=== PATIENT | male | born 1970 | race Caucasian/White ===

== ENCOUNTER → 2023-07-06 14:49 | Outpatient (REF) | payer OTHER, SELFPAY | LOC: CLAB 14:49 | PROVIDERS: ATTENDING PHYSICIAN Surgery | DX: K64.2 Third degree hemorrhoids (principal) | CPT/HCPCS: 88304 ==

== ENCOUNTER 2023-07-15 17:52 | Observation (INO) | payer OTHER, SELFPAY ==
[2023-07-15] VITALS (10 sets, daily range): BP systolic 126–173; BP diastolic 77–101; BMI 31.6
[2023-07-15 10:36] LABS: % Basophils 0.6 % (0-2); % Eosinophils 5.4 % (0-6); % Immature Granulocytes 0.4 % (0-0.5); % Lymphocytes 16.8 % (20.5-51.1); % Monocytes 11.3 % (1.7-9.3); % Neutrophils 65.5 % (42.2-75.2); Absolute Basophils 0.1 10^3/uL (0-0.2); Absolute Eosinophils 0.5 10^3/uL (0-0.7); Absolute Lymphocytes 1.4 10^3/uL (1.2-3.4); Absolute Monocytes 0.9 10^3/uL (0.1-0.6); Absolute Neutrophils 5.4 10^3/uL (1.4-6.5); Hematocrit 47.3 % (39.0-52.0); Hemoglobin 16.6 g/dL (13.0-18.0); Mean Corp Hgb Conc. 35.1 g/dL (33.0-37.0); Mean Corpuscular Hgb 31.3 pg (27.0-31.0); Mean Corpuscular Volume 89.1 fL (80.0-94.0); Mean Platelet Volume 8.6 fL (7.4-10.4); Nucleated Red Blood Cells % 0 % (-); Platelet Count 253 10^3/uL (130-400); Red Blood Cell Count 5.31 10^6/uL (4.70-6.10); Red Cell Dist. Width 12.7 % (11.5-14.5); White Blood Cell Count 8.3 10^3/uL (4.8-10.8)
[2023-07-15 10:44] LABS: PT 13.2 Sec (11.4-14.6)
[2023-07-15 10:46] LABS: ALT (SGPT) 25 U/L (0-50); AST (SGOT) 26 U/L (17-59); Albumin 3.8 g/dl (3.5-5.0); Alkaline Phosphatase 94 U/L (38-126); Blood Urea Nitrogen 24 mg/dl (9-20); Calcium 9.4 mg/dl (8.4-10.2); Carbon Dioxide 24 mmol/L (22-30); Chloride 106 mmol/L (98-107); Glucose 121 mg/dl (70-99); Potassium 4.1 mmol/L (3.5-5.1); Sodium 138 mmol/L (135-145); Total Bilirubin 0.7 mg/dl (0.2-1.3); Total Protein 6.7 g/dl (6.3-8.2); eGFR > 60.00
[2023-07-15] MEDS: DILAUDID 1 MG IV ×4 (11:27→22:05)
--- NOTE | 2023-07-15 13:45 | ED.GENMED ---
History of Present Illness
General
Chief Complaint: Post Operative Problem(s)
Source: patient
Exam Limitations: none
Time Seen by Provider: 07/15/23 10:16
Nursing documentation reviewed up to this point in time: agreed with
Travel History
Have you had any contact with someone who has COVID-19?: No
Do you have any symptoms of coronavirus? Fever > 100 degrees, chills, cough, shortness of breath, sore throat, loss of taste or smell, muscle aches, or headache?: No
History of Present Illness
History of Present Illness:
53-year-old male with past medical history of hypertension, hemorrhoids status post recent hemorrhoidectomy 9 days ago presenting to the emergency department today with concerns of ongoing severe rectal pain. Denies any fevers chest pain shortness
of breath has been having some bowel movements but claims they are painful
Past History
Past History
ED Past Medical History: None
ED Past Surgical History: None
Social History
Tobacco: Smoker
Alcohol: None
Living: with family
Family History
Family History: Negative Diabetes, Hypertension or CAD
Review of Systems
Review of Systems
Allergies reviewed?: Yes
All Other Systems: ROS reviewed and negative except as documented in HPI and ROS
Phy Exam
Physical Exam
Physical Exam:
GENERAL: Alert , in no apparent distress
EYE: pupils equal and reactive
NECK: Supple, no significant adenopathy.
ENT: o/p clr, mmm.
CARDIAC: Regular rate and rhythm .
LUNGS: Clear breath sounds bilaterally, no acute respiratory distress, no wheezes/rales/rhonchi
ABDOMEN: Multiple external hemorrhoids very tender to palpation to even light touch small mount of what appears to be purulence soft, without focal tenderness, no r/g, no cvat
NEUROLOGICAL: Alert and oriented, no focal neuro deficits
SKIN: Warm and dry, skin intact.
MUSCULOSKELETAL: No edema, well perfused.
PSYCH: Normal and appropriate interaction.
Course
Orders/Labs/Results
Orders:
Orders
07/15/23 10:20
Complete Blood Count/With Diff Urgent
Comprehensive Metabolic Panel Urgent
Prothrombin Time Urgent
07/15/23 11:[address] Pelvis With Iv Contrast Urgent
Comment:
Reason For Exam: rectal pain after hemmorhoidectomy
HYDROmorphone [Dilaudid] 1 mg IV NOW STA
07/15/23 13:32
Lorazepam [Ativan] 1 mg IV NOW STA
07/15/23 14:35
Sitz Bath As Directed
Frequency: BID
Comment: warm water, 10 minutes at a time
07/15/23 20:00
Docusate Sodium [Colace] 100 mg PO BID
07/16/23 08:00
Calcium Polycarbophil [Fibercon] 625 mg PO DAILY
Psyllium [Metamucil, Konsyl] 1 packet PO DAILY
Abnormal Lab Results
07/15/23
10:20
MCH 31.3 H pg
(27.0-31.0)
Absolute Monos (auto) 0.9 H 10^3/uL
(0.1-0.6)
Lymphocytes % 16.8 L %
(20.5-51.1)
Monocytes % 11.3 H %
(1.7-9.3)
BUN 24 H mg/dl
(9-20)
Glucose 121 H mg/dl
(70-99)
07/15/23 10:20
07/15/23 10:20
Vital Signs
Initial and Last Documented VS:
Initial Vital Signs
Temp Pulse Resp BP Pulse Ox
98.1 F 92 18 173/90 94
07/15/23 09:43 07/15/23 09:43 07/15/23 09:43 07/15/23 09:43 07/15/23 09:43
Last Documented Vital Signs
Temp Pulse Resp BP Pulse Ox
98.1 F 82 20 143/97 97
07/15/23 09:43 07/15/23 13:52 07/15/23 13:52 07/15/23 12:00 07/15/23 13:52
MDM/Problems Addressed
MDM/Problems Addressed:
53-year-old male presenting to today with concerns of severe rectal pain 9 days after hemorrhoidectomy. Patient contacted his colorectal surgeon who told him to come to the ER for assessment. Here patient has significant discomfort even with even
the slightest palpation to the rectal area. There is a small amount of what appears to be purulent discharge at the very external portion. CT scan does not show abscess Case was reviewed and patient was seen by colorectal team they recommended
admitting for pain control and reassessment.
*Critical Care Note
Total Time (30-74mins, 75-104mins- exclusive of procedures): Not Applicable
ED Attending Note
-
Portions of this chart may have been created with voice recognition software.� Occasional wrong word or��sound alike� substitutions may have occurred due to the inherent limitations of voice recognition software.
Discharge Plan
Departure
Patient Disposition: Home (Routine Discharge)
Date of Disposition: 07/15/23
Time of Disposition: 15:14
Admit to: Med/Surg
Admit to doctor: Gilson
Patient with high blood pressure during this ER visit?: No
Condition: Good
Covid-19: Not Applicable
Discharge Problem:
Anal or rectal pain
Prescriptions:
No Action
amlodipine 2.5 mg tablet
2.5 mg PO DAILY
losartan-hydrochlorothiazide 100-25 mg tablet
1 tab PO DAILY
oxycodone-acetaminophen 5-325 mg tablet
1 tab PO Q6H PRN (Reason: moderate pain)
Patient Comments:
07/15/2023: last filled 07/10/23, 28 tabs for 7 days from [facility]
diazepam 2 mg tablet
2 mg PO BID PRN (Reason: ANXIETY)
Patient Comments:
07/15/2023: last filled 07/13/23, 14 tabs for 7 days from [id number]
ergocalciferol (vitamin D2) 1,250 mcg (50,000 unit) capsule
1,250 mcg PO SA
Referrals:
Jluis Zelaya DO [Family Provider] -
Interventions
Interventions:
*Risk Screen - Suicide Last Done: 07/15/23 09:43
*General Assessment Last Done: 07/15/23 09:43
*Neglect/Abuse Screening Last Done: 07/15/23 09:43
*ED COVID-19 Vaccine History Last Done: 07/15/23 09:43
ED-Skin Assessment Last Done: 07/15/23 10:26
Discharge Date and Time
Print Language: [place]
[2023-07-15] MEDS: ATIVAN 1 MG IV (13:48)
--- NOTE | 2023-07-15 14:21 | CON.CRS ---
Consultation
-
Date/Time Consultation Performed: 07/15/2023, 14:21
Performing Provider: Abrahan Wan MD
Reason for Consultation: anal pain
Medical History
-
Chief Complaint: anal pain
History of Present Illness:
53-year-old male with a past medical history of hyperlipidemia, hypertension, anxiety presents to the ER due to excruciating anal pain. The patient underwent hemorrhoidectomy by Dr. Blas on 06/26/2023. He initially had some pain and was brought
back to clinic 4 days later. At that time he was prescribed Percocet and Valium due to his pain. He then called our office 2 days ago stating of his pain has been unrelenting. The only thing that helps was Valium however over the past few days it
had subsided and its efficiency. The patient has been doing sitz bath's multiple times a day and has been taking fiber and Metamucil. The patient was not able to sleep over the past 2 nights and was 'withering and pain in his bed'. The patient
states the rectal tampon that was placed during surgery came out yesterday. He feels constant pressure like he has to have a bowel movement but is unable to. Initially he had trouble urinating but that has subsided over the past few days. He
denies any blood in his stool. He denies fevers or chills.
On admission to the ER his WBC is normal. CT of the pelvis shows no free fluid or fluid collection. No abscess. Mild wall thickening of the anal rectal junction. Minimal adjacent stranding consistent with postoperative inflammation. The patient
received Dilaudid in the ED but states that it has not helped at all. We have been consulted for further recommendations.
Past Medical History
Past Medical History: HTN, Hypercholesterolemia and Other (ADD, essential tremor, h/o gastritis, anxiety, WILLIAMS, packer's palsy, Vit D deficiency )
Past Surgical History: Brain (Deep brain stimulator May 2021) and Other (carpal tunnel release, wisdom teeth extraction 01/2017�, arthroscopic debridement of the suprapatellar pouch and synovitis and irrigation of joint-right Knee
10/2007,�cystoscopy, excision of perineal abscess and sinus tract 12/2000�, incision and drainage of perineal abscess 07/12)
Social History
Tobacco: Non-Smoker
Alcohol: Occasional
Drug: None
Family History
Family History: Reviewed & Not Pertinent
Allergies / Home Medications
Allergy/AdvReac Type Severity Reaction Status Date / Time
No Known Allergies Allergy Verified 07/15/23 09:43
�Medication �Instructions �Recorded �Confirmed �Type
amlodipine 2.5 mg tablet 2.5 mg PO DAILY 07/15/23 07/15/23 History
diazepam 2 mg tablet 2 mg PO BID PRN ANXIETY 07/15/23 07/15/23 History
ergocalciferol (vitamin D2) 1,250 1,250 mcg PO SA 07/15/23 07/15/23 History
mcg (50,000 unit) capsule
losartan 100 1 tab PO DAILY 07/15/23 07/15/23 History
mg-hydrochlorothiazide 25 mg tablet
oxycodone-acetaminophen 5 mg-325 1 tab PO Q6H PRN moderate pain 07/15/23 07/15/23 History
mg tablet
Review of Systems
-
All other systems: Negative unless noted
: Difficulty Voiding and Other (rectal pain/pressure)
A 10 point review of systems was completed, and was negative except as per HPI.
Physical Exam
Vital Signs
Temp 98.1 F 07/15/23 09:43
Pulse 82 07/15/23 13:52
Resp Rate 20 07/15/23 13:52
Blood pressure 143/97 07/15/23 12:00
SaO2 97 07/15/23 13:52
07/14/23 07/15/23 07/16/23
06:59 06:59 06:59
Actual Weight 100.698 kg
Lab Results / Allergies
07/15/23 10:20
07/15/23 10:20
WBC 8.3 10^3/uL (4.8-10.8) 07/15/23 10:20
Hgb 16.6 g/dL (13.0-18.0) 07/15/23 10:20
Hct 47.3 % (39.0-52.0) 07/15/23 10:20
Plt Count 253 10^3/uL (130-400) 07/15/23 10:20
Abs Immat Gran (auto) 0.0 10^3/uL (0-0.05) 07/15/23 10:20
Neutrophils % 65.5 % (42.2-75.2) 07/15/23 10:20
Allergy/AdvReac Type Severity Reaction Status Date / Time
No Known Allergies Allergy Verified 07/15/23 09:43
Physical Exam
General: Well Developed, Well Nourished and No Apparent Distress
GI: Soft, Non Tender and Non Distended
Rectal: Other (external exam: sutures in place, mucin around anal area, no fluctuance on palpation, no erythema, patient is refusing JAVI)
Neuro: AO x 3
Data Reviewed
-
CT Scan: Image Personally Visualized and interpreted, Report Reviewed by me and Discussed with Patient
Labs: Labs Reviewed by me, Discussed with Physician and Discussed with Patient
Old Records: Reviewed
Assessment / Plan
-
Assessment: 53 yo male POD#9 from a hemorrhoidectomy presents with perianal pain and pressure despite percocet/valium, no abscess noted on CT
Plan:
1. Recommend admit to medicine service for pain control.
2. No role for antibiotics from our standpoint at this time.
3. Monitor WBC/vitals.
4. Patient currently refusing JAVI. If he worsens tomorrow, will consider an exam under anesthesia. Will hold off at this time.
5. Recommend stool softeners, fiber, and sitz baths.
--- NOTE | 2023-07-15 15:49 | HPS.HSE ---
Family Physician
-
Family Physician: Jluis Zelaya
Chief Complaint
-
Anal pain
History of Present Illness
Patient 53 years old male with history hypertension, hyperlipidemia, essential tremor, recent hemorrhoidectomy on 06/25, presented to the hospital with rectal pain. Patient was seen postop with some rectal pain and was prescribed Percocet and Valium
and despite these medications patient continued to have rectal pain moderate to severe intensity and unrelenting, patient relates that he has not been able to sleep over the last couple of nights. He also has a sensation of constant pressure like
he is going to have a bowel movement but unable to do so. He also had some trouble urinating but now he is voiding okay today. Denies any fevers or chills. Denies nausea vomiting or diarrhea. Denies any blood in the stools. Denies any chest
pain or shortness of breath. In the ER, normal WBC, normal hemoglobin, and CT of the pelvis no free fluid or fluid collection or abscess but mild wall thickening of the anorectal junction and minimal adjacent stranding consistent with postoperative
inflammation. Colorectal surgery consulted. He was referred to hospital service for further evaluation.
Medical History
Past Medical History
Past Medical History: Reports Other (Hypertension, dyslipidemia, ADHD, essential tremor, anxiety, WILLIAMS, vitamin D deficiency, Richmond's palsy, gastritis.)
Past Surgical History: Reports Other (Deep brain stimulator, carpal tunnel release, wisdom teeth extraction, arthroscopy with debridement of the suprapatellar pouch and synovitis and irrigation of the joint, right knee; cystoscopy and excision of
perineal abscess and sinus tract, incision and drainage of perineal abscess in the past.)
Social History
Tobacco: Non-smoker
Alcohol: Occasional
Drug: None
Family History
Family History: Not pertinent
Allergies / Home Medications
Allergies reflects when Allergies were last updated in [employer].
Home Medications with original date entered in [employer]
Allergy/Medication List:
Allergies
Allergy/AdvReac Type Severity Reaction Status Date / Time
No Known Allergies Allergy Verified 07/15/23 09:43
Home Medications
amlodipine 2.5 mg tablet 2.5 mg PO DAILY 07/15/23
diazepam 2 mg tablet 2 mg PO BID PRN ANXIETY 07/15/23
ergocalciferol (vitamin D2) 1,250 mcg (50,000 unit) capsule 1,250 mcg PO SA 07/15/23
losartan 100 mg-hydrochlorothiazide 25 mg tablet 1 tab PO DAILY 07/15/23
oxycodone-acetaminophen 5 mg-325 mg tablet 1 tab PO Q6H PRN moderate pain 07/15/23
Review of Systems
-
A 12 point ROS was completed and negative except as noted: Yes
Physical Exam
Vital Signs
Vital Signs
Temp Pulse Resp BP Pulse Ox
98.1 F 82 20 143/97 97
07/15/23 09:43 07/15/23 13:52 07/15/23 13:52 07/15/23 12:00 07/15/23 13:52
Physical exam:
General: Non toxic. Distress due to pain.
HEENT: Normocephalic, Atraumatic and Moist Mucous Membranes
Respiratory: Clear to Auscultation; Negative Wheezes, Rales or Rhonchi
Cardiac: Regular Rhythm and S1/S2
GI: Soft, Nontender and Nondistended
Musculoskeletal: No Clubbing, No Cyanosis and No Edema
Rectal exam: Deferred since done by providers prior to my evaluation.
Neuro: Awake, Alert and Oriented
Psych: Calm
Physical Exam
General: Other
Laboratory Results
-
07/15/23 10:20
07/15/23 10:20
Laboratory Results
PT 13.2 Sec (11.4-14.6) 07/15/23 10:20
INR 1.00 07/15/23 10:20
Total Bilirubin 0.7 mg/dl (0.2-1.3) 07/15/23 10:20
AST 26 U/L (17-59) 07/15/23 10:20
ALT 25 U/L (0-50) 07/15/23 10:20
Alkaline Phosphatase 94 U/L (38-126) 07/15/23 10:20
Impression/Plan
-
IMPRESSION:
Patient 53 years old male came into the hospital post hemorrhoidectomy with persistent perianal pain post-op.
Impression:
Pain post hemorrhoidectomy
Conditions prior to presentation:
Hypertension
ADHD
Essential tremors status post brain stimulator
Anxiety
PLAN:
Pain control
Sitz bath, fiber, stool softener
IVF
Resume home meds including HTN meds
Supportive care
Colorectal surgery consult
SCDs for DVT prophylaxis
CODE STATUS full code
Time spent 55 min.
[2023-07-15] MEDS: ROXICODONE 10 MG PO ×2 (18:07→21:20)
[2023-07-15] MEDS: COLACE 100 MG PO ×2 (18:10→21:20)
[2023-07-15] MEDS: VALIUM 2 MG PO (21:20)
[2023-07-15] MEDS: NSS 1000 IV (21:20)
--- NOTE | 2023-07-15 22:10 | PTCARENOTE ---
Received pt from ER at 2039. Ambulatory in room. AAOx3 VSS. Pt medicated for pain per APR. Oriented to room, call packer and plan of care.
[2023-07-16] MEDS: DILAUDID 1 MG IV ×7 (01:03→22:32)
[2023-07-16] MEDS: ROXICODONE 10 MG PO ×5 (01:39→20:38)
[2023-07-16 05:37] LABS: % Basophils 0.6 % (0-2); % Eosinophils 6.5 % (0-6); % Immature Granulocytes 0.4 % (0-0.5); % Lymphocytes 24.5 % (20.5-51.1); % Monocytes 12.2 % (1.7-9.3); % Neutrophils 55.8 % (42.2-75.2); Absolute Basophils 0.1 10^3/uL (0-0.2); Absolute Eosinophils 0.5 10^3/uL (0-0.7); Absolute Lymphocytes 1.9 10^3/uL (1.2-3.4); Absolute Neutrophils 4.4 10^3/uL (1.4-6.5); Hematocrit 46.2 % (39.0-52.0); Hemoglobin 15.2 g/dL (13.0-18.0); Mean Corp Hgb Conc. 32.9 g/dL (33.0-37.0); Mean Corpuscular Hgb 30.6 pg (27.0-31.0); Mean Platelet Volume 8.8 fL (7.4-10.4); Nucleated Red Blood Cells % 0 % (-); Platelet Count 230 10^3/uL (130-400); Red Blood Cell Count 4.97 10^6/uL (4.70-6.10); Red Cell Dist. Width 12.7 % (11.5-14.5); White Blood Cell Count 7.8 10^3/uL (4.8-10.8)
[2023-07-16 05:59] LABS: Blood Urea Nitrogen 25 mg/dl (9-20); Carbon Dioxide 26 mmol/L (22-30); Chloride 105 mmol/L (98-107); Estimated Creatinine Clearance 97 ml/min; Glucose 95 mg/dl (70-99); Potassium 4.2 mmol/L (3.5-5.1); Sodium 138 mmol/L (135-145); eGFR > 60.00
[2023-07-16] MEDS: SENOKOT-S 1 TABLET PO (06:05)
[2023-07-16 07:00] VITALS: BP 143/79
[2023-07-16] MEDS: NORVASC 2.5 MG PO (08:13)
[2023-07-16] MEDS: METAMUCIL, KONSYL 1 PACKET PO (08:13)
[2023-07-16] MEDS: HYZAAR 100-25 TABLET 1 TAB PO (08:13)
[2023-07-16] MEDS: COLACE 100 MG PO ×2 (08:13→20:39)
--- NOTE | 2023-07-16 08:57 | W.PN.HOSP.TC ---
Today's Communication/Plan
-
Pain control, bowel regimen.
Assessment / Plan
Assessment / Plan
Physical exam:
General: Non toxic. No acute distress
HEENT: Normocephalic, Atraumatic and Moist Mucous Membranes
Respiratory: Clear to Auscultation; Negative Wheezes, Rales or Rhonchi
Cardiac: Regular Rhythm and S1/S2
GI: Soft, Nontender and Nondistended
Musculoskeletal: No Clubbing, No Cyanosis and No Edema
Rectal exam: Deferred since done by providers prior to my evaluation.
Neuro: Awake, Alert and Oriented
Psych: Calm
A/P:
Impression:
Pain post hemorrhoidectomy
Conditions prior to presentation:
Hypertension
ADHD
Essential tremors status post brain stimulator
Anxiety
PLAN:
He was n.p.o. this morning in case he would need to go to the OR by surgery but surgeon started him back on regular diet today.
Pain control
Sitz bath, fiber, stool softener
Stop IVF
Cont home meds including HTN meds
Supportive care
Colorectal surgery consult and follow-up appreciated
SCDs for DVT prophylaxis
CODE STATUS full code
Anticipated Discharge: 24 - 48 hours
Subjective/Interval History
-
Date of Service: July 16, 2023
Patient still with rectal discomfort. No bleeding. No nausea or vomiting. No bowel movement. Afebrile
Objective Data
-
Labs:
Laboratory Results
07/16/23
04:48
WBC 7.8
Hgb 15.2
Hct 46.2
Plt Count 230
Sodium 138
Potassium 4.2
Chloride 105
Carbon Dioxide 26
BUN 25 H
Creatinine 1.0
Glucose 95
Calcium 9.0
Vital Signs:
Vital Signs
Temp Pulse Resp BP Pulse Ox
98.0 F 64 18 143/79 95
07/16/23 07:00 07/16/23 07:00 07/16/23 07:00 07/16/23 07:00 07/16/23 07:00
I&O
07/15/23 07/16/23 07/17/23
06:59 06:59 06:59
Intake Total 960 / 960
Balance 960 / 960
[2023-07-16] MEDS: VALIUM 5 MG PO ×2 (10:45→19:16)
[2023-07-16] MEDS: FIBERCON 625 MG PO (10:46)
--- NOTE | 2023-07-16 10:50 | W.PN.CRS1 ---
Today's Communication / Plan
-
no plans for OR
increase valium
add tylenol/ibuprofen standing
mag citrate x 1
Assessment/Plan
-
POD#10 from a hemorrhoidectomy presents with perianal pain and pressure despite percocet/valium, no abscess noted on CT (inflammation noted)
1. No plans for exam under anesthesia today. Okay to resume diet.
2. Will increase valium to 5mg q6prn. Currently on Dilaudid IV PRN and roxicodone PRN. Will add Tylenol/Ibuprofen standing.
3. Given lack of BM, magnesium citrate x 1.
4. Continue Colace/Senna, Miralax, fiber.
5. Sitz baths twice a day for at least 10 minutes a day.
6. Will follow.
Subjective Data
Subjective Data
Date of Service: July 16, 2023
Patient states he feels 'okay'. He has no nausea or vomiting. He has no abdominal pain. His main complaint is that he feels constipated with rectal pressure. He has not had a bowel movement in 2 days. He is urinating.
Objective Data
-
Vital Signs
Temp Pulse Resp BP Pulse Ox
98.0 F 64 18 143/79 95
07/16/23 07:00 07/16/23 07:00 07/16/23 07:00 07/16/23 07:00 07/16/23 07:00
Intake & Output
07/15/23 07/16/23 07/17/23
06:59 06:59 06:59
Intake Total 960 / 960
Balance 960 / 960
Intake:
Oral fluids 960 / 960
Other:
Number of approximated MODERATE 2
amounts of urine
Lab Results
07/16/23 04:48
07/16/23 04:48
Physical Exam
-
General: No Acute Distress and AOx3
Abdomen: Soft, Non Distended and Non Tender
[2023-07-16 11:25] VITALS: BP 153/101
[2023-07-16] MEDS: FLUSH (NSS) 1 FLUSH IV (11:25)
[2023-07-16] MEDS: TYLENOL 650 MG PO ×3 (11:26→20:39)
[2023-07-16] MEDS: MOTRIN 600 MG PO ×2 (12:50→19:08)
[2023-07-16 15:00] VITALS: BP 157/93
--- NOTE | 2023-07-16 15:11 | CM ---
Patient seen bedside, initial assessment completed. Patient resides with his and son in a single story home, 10 steps to enter. Patient denies DME other than CPAP, denies VN or SNF. Patient confirms PCP Dr. Zelaya, pharmacy [facility],
confirms prescription coverage. Patient denies food insecurities at home. OBS status reviewed, refused to sign, placed in patients chart. CM will continue to follow for all discharge planning needs.
Plan; home no needs likely.
[2023-07-16] MEDS: NSS IV (15:59)
[2023-07-16 18:15] VITALS: BP 157/101
[2023-07-16 20:26] VITALS: BP 153/95
[2023-07-17] VITALS: BP 156/97
[2023-07-17] MEDS: MOTRIN 600 MG PO ×3 (00:23→11:52)
[2023-07-17] MEDS: TYLENOL 650 MG PO ×4 (01:16→15:17)
[2023-07-17] MEDS: ROXICODONE 10 MG PO ×2 (01:16→12:33)
[2023-07-17] MEDS: DILAUDID 1 MG IV ×4 (01:42→15:17)
[2023-07-17] MEDS: VALIUM 5 MG PO ×2 (04:32→11:17)
[2023-07-17 06:18] LABS: Hematocrit 43.3 % (39.0-52.0); Mean Corp Hgb Conc. 34.6 g/dL (33.0-37.0); Mean Corpuscular Hgb 30.8 pg (27.0-31.0); Mean Corpuscular Volume 88.9 fL (80.0-94.0); Mean Platelet Volume 8.6 fL (7.4-10.4); Platelet Count 237 10^3/uL (130-400); Red Blood Cell Count 4.87 10^6/uL (4.70-6.10); Red Cell Dist. Width 12.6 % (11.5-14.5); White Blood Cell Count 7.3 10^3/uL (4.8-10.8)
[2023-07-17 06:51] LABS: Blood Urea Nitrogen 21 mg/dl (9-20); Carbon Dioxide 26 mmol/L (22-30); Chloride 105 mmol/L (98-107); Estimated Creatinine Clearance 97 ml/min; Glucose 90 mg/dl (70-99); Potassium 4.3 mmol/L (3.5-5.1); Sodium 136 mmol/L (135-145); eGFR > 60.00
[2023-07-17 07:00] VITALS: BP 141/72
--- NOTE | 2023-07-17 08:36 | W.PN.HOSP.TC ---
Today's Communication/Plan
-
Continue current management. Awaiting for colorectal surgery reevaluation.
Assessment / Plan
Assessment / Plan
Physical exam:
General: Non toxic. No acute distress
HEENT: Normocephalic, Atraumatic and Moist Mucous Membranes
Respiratory: Clear to Auscultation; Negative Wheezes, Rales or Rhonchi
Cardiac: Regular Rhythm and S1/S2
GI: Soft, Nontender and Nondistended
Musculoskeletal: No Clubbing, No Cyanosis and No Edema
Rectal exam: Deferred since done by providers prior to my evaluation.
Neuro: Awake, Alert and Oriented
Psych: Calm
A/P:
Impression:
Pain post hemorrhoidectomy
Conditions prior to presentation:
Hypertension
ADHD
Essential tremors status post brain stimulator
Anxiety
PLAN:
Tolerating regular diet.
Pain control
Sitz bath, fiber, stool softener
Stopped IVF
Cont home meds including HTN meds
Supportive care
Colorectal surgery consult and follow-up appreciated
Possible discharge today if cleared by colorectal surgery
SCDs for DVT prophylaxis
CODE STATUS full code
Anticipated Discharge: Today
Subjective/Interval History
-
Date of Service: July 17, 2023
Patient having some rectal discomfort but overall he tells me that he has been improving substantially. Afebrile
Objective Data
-
Labs:
Laboratory Results
07/17/23
06:04
WBC 7.3
Hgb 15.0
Hct 43.3
Plt Count 237
Sodium 136
Potassium 4.3
Chloride 105
Carbon Dioxide 26
BUN 21 H
Creatinine 1.0
Glucose 90
Calcium 9.0
Vital Signs:
Vital Signs
Temp Pulse Resp BP Pulse Ox
97.8 F 58 16 141/72 98
07/17/23 07:00 07/17/23 07:00 07/17/23 07:00 07/17/23 07:00 07/17/23 07:00
I&O
07/16/23 07/17/23 07/18/23
06:59 06:59 06:59
Intake Total 960 / 960 480 / 480
Balance 960 / 960 480 / 480
[2023-07-17] MEDS: COLACE 100 MG PO (08:40)
[2023-07-17] MEDS: METAMUCIL, KONSYL 1 PACKET PO (08:41)
[2023-07-17] MEDS: HYZAAR 100-25 TABLET 1 TAB PO (08:43)
[2023-07-17] MEDS: NORVASC 2.5 MG PO (08:43)
[2023-07-17] MEDS: FIBERCON PO (08:47)
[2023-07-17] MEDS: ROXICODONE PO (11:52)
--- NOTE | 2023-07-17 11:52 | W.DCSUMMARY ---
Discharge Summary
Discharge Data
Date of Admission: 07/15/23
Date of Discharge: 07/17/23
-
Pending Results: No
Hospital Course
Patient 53 years old male with history hypertension, hyperlipidemia, anxiety, recent hemorrhoidectomy done on 06/[address] Blas, presented to the hospital with rectal pain. Patient was kept under observation and was instructed to
do sitz bath's, aggressive bowel regimen, pain medication, and anxiolytics. Patient did not have any bleeding, and his labs remain unremarkable. Tolerating regular diet. Ambulating without any difficulties. Colorectal surgery cleared him for
discharge today.
Discharge Plan
-
Patient Disposition: Home (Routine Discharge)
Discharge Diagnosis/Procedures: Post hemorrhoidectomy pain. Hypertension. Anxiety.
Diet: Low Cholesterol
Activity: As tolerated
Driving Restrictions: As prior to admission
Blood Work: Please PCP to order CBC, BMP within 1 week
Wound Care: Sitz baths twice a day with warm water, at least 10 minutes each time.
Referrals:
Jluis Blas MD [Active] - 07/21/23 3:00 am
Jluis Zelaya DO [Family Provider] -
Additional Discharge Medication Instructions: Daily fiber. Colace twice a day and Miralax daily. Tylenol and Ibuprofen as needed for pain. Maximum dose of Tylenol is 4,000mg in 24 hours. Maximum dose of Ibuprofen is 3,200 mg in 24 hours.
Prescriptions:
New
oxycodone 5 mg tablet
5 mg PO Q6H PRN (Reason: pain) Qty: 30 0RF
diazepam [Valium] 5 mg tablet
5 mg PO Q8H PRN (Reason: anal spasm) Qty: 20 0RF
Continued
amlodipine 2.5 mg tablet
2.5 mg PO DAILY
losartan-hydrochlorothiazide 100-25 mg tablet
1 tab PO DAILY
diazepam 2 mg tablet
2 mg PO BID PRN (Reason: ANXIETY)
Patient Comments:
07/15/2023: last filled 07/13/23, 14 tabs for 7 days from [id number]
ergocalciferol (vitamin D2) 1,250 mcg (50,000 unit) capsule
1,250 mcg PO SA
Discontinued
oxycodone-acetaminophen 5-325 mg tablet
1 tab PO Q6H PRN (Reason: moderate pain)
Patient Comments:
07/15/2023: last filled 07/10/23, 28 tabs for 7 days from [id number]
Discharge Orders:
Discharge Patient (As Directed); Ordered 07/17/23
Ordered By: Josiah Ibanez
Discharge Date and Time
Discharge Date/Time: 07/17/23 16:58
Print Language: [place]
--- NOTE | 2023-07-17 11:59 | W.PN.CRS1 ---
Today's Communication / Plan
-
Okay for discharge, follow-up with [facility] in 1-2
Assessment/Plan
-
53-year-old male with PMH of HLD, HTN, anxiety, WILLIAMS, prediabetes, HIRAL, hemorrhoids s/p RBL who underwent hemorrhoidectomy on 07/05 with [facility], course c/b severe pain; after multiple adjustments, pain still remains uncontrolled so patient was
instructed to go to ED for ruling out possible infection; afebrile, WBC normal, CT showing perianal inflammation without fluid or abscess
AFVSS, wbc 7.3 from 7.8
� Okay for regular diet
� OOB/IS
� Recommend multimodal pain control with Tylenol and Motrin ATC, oxycodone; Dibucaine cream as needed and sitz bath's
� Prevent constipation as this can make pain worse; recommend Colace twice daily, daily fiber and MiraLAX as needed
� Okay for discharge with pain regiment for home; follow-up with [facility] in 1 to 2-week
Subjective Data
Subjective Data
Date of Service: July 17, 2023
Pain better controlled. Tolerating diet. Having bowel function.
Objective Data
-
Vital Signs
Temp Pulse Resp BP Pulse Ox
97.8 F 58 16 141/72 98
07/17/23 07:00 07/17/23 08:43 07/17/23 07:00 07/17/23 08:43 07/17/23 07:00
Intake & Output
07/16/23 07/17/23 07/18/23
06:59 06:59 06:59
Intake Total 960 / 960 480 / 480
Balance 960 / 960 480 / 480
Intake:
Oral fluids 960 / 960 480 / 480
Other:
Number of approximated MODERATE 2 3
amounts of urine
Lab Results
07/17/23 06:04
05/24/24 06:04
Physical Exam
-
General: No Acute Distress and AOx3
HEENT: Grossly Normal
Abdomen: Soft, Non Distended, Non Tender, No Guarding and No Rebound
[2023-07-17 15:00] VITALS: BP 123/76
[2023-07-17] MEDS: TYLENOL PO (15:17)
--- NOTE | 2023-07-17 18:39 | PTCARENOTE ---
Late note: Pt dc'd to home. Pt out of pain medication and valium at home despite his prescriptions refills showing he should have some left. Dr. Wan colorectal contacted and ordered pt both valium and pain medication. pt agreeable to leave now
that he has scripts for both. Pt iv removed. Escorted by staff to car with son. dc paperwork reviewed. IV removed.
== END 2023-07-17 16:58 | disposition home or self-care (01) ==
LOC: 4 WEST ACU 17:52
PROVIDERS: ADMITTING PHYSICIAN Hospitalist; EMERGENCY PHYSICIAN Emergency Medicine; FAMILY PHYSICIAN Family Medicine; OTHER PHYSICIAN Surgery
DX: G89.18 Other acute postprocedural pain (principal); K62.89 Other specified diseases of anus and rectum; I10 Essential (primary) hypertension; F17.200 Nicotine dependence, unspecified, uncomplicated; E78.00 Pure hypercholesterolemia, unspecified; F41.9 Anxiety disorder, unspecified; G47.33 Obstructive sleep apnea (adult) (pediatric); R73.03 Prediabetes; G25.0 Essential tremor; F90.9 Attention-deficit hyperactivity disorder, unspecified type; Z87.19 Personal history of other diseases of the digestive system
CPT/HCPCS: 72193; 80048; 80053; 85025; 85027; 85610; 87070; 96374; 96375; 96376; 99285; 99406; G0378; Q9967